=== PATIENT | female | born 1985 | race Caucasian/White ===

== ENCOUNTER 2017-03-18 14:18 | Emergency (ER) | payer OTHER ==
[~2017-03-18 14:18] MED LIST: FLAGYL PO; HUMALOG100 U/M1 SUBQ; LANTUS100 U/M1 SUBQ; LEVAQUIN PO; LIPITOR20 MG PO; LORTAB 5/500 TA1 TA1 PO; NOVOLOG100 U/M1 SQ; PHENERGAN25 MG PO; PRILOSEC PO; REGLAN5 MG PO; SYNTHROID PO; ZOFRAN PO
[2017-03-18 15:35] LABS: BUN/CREATININE RATIO 17.14; CALCIUM SERUM 9.1 mg/dL (8.4-10.2); CREATININE SERUM 0.7 mg/dL (0.6-1.4); GLOM FILT RATE Estimated 114.6 mL/min (>60); POTASSIUM 4.5 mmol/L (3.5-5.1)
[2017-03-18 18:02] LABS: URINE SOURCE CLEAN CATCH
[2017-03-18 18:25] LABS: URINE APPEARANCE TURBID; URINE BILIRUBIN NEG (NEG); URINE BLOOD NEG (NEG); URINE COLOR YELLOW; URINE GLUCOSE NEG (NEG); URINE KETONE NEG (NEG); URINE LEUKOCYTE ESTERASE 2+ (NEG); URINE NITRATE NEG (NEG); URINE PROTEIN NEG (NEG); URINE SPECIFIC GRAVITY 1.011 (1.003-1.035); URINE UROBILINOGEN 0.2 MG/DL (NEG)
[2017-03-18 18:27] LABS: CULTURE INDICATED? YES; URBCS1 AUWI 0-2 /[HPF] (0-2); URINE BACTERIA AUWI 4+ (NEGATIVE); URINE SQUAMOUS EPITHELIAL CELL MANY /[HPF]; UWBCS1 AUWI 100-200 (0-5)
== END 2017-03-18 18:05 | disposition home or self-care (01) ==
LOC: CED 14:18
PROVIDERS: Emergency Medicine
DX: E11.649 Type 2 diabetes mellitus with hypoglycemia without coma (principal)
CPT/HCPCS: 36415; 80048; 81003; 82947; 84484; 84703; 87086; 99283